=== PATIENT | female | born 1950 | race Caucasian/White ===

== ENCOUNTER 2020-02-12 09:57 | Emergency (ER) | payer BC, MEDICARE, OTHER ==
[~2020-02-12] VITALS: Ht 152.4 cm; Wt 60.0 kg
[~2020-02-12 09:57] MED LIST: BUPIVACAINE LIPOSOME; NONE PER PT; SENN1TAB67 PO
--- NOTE | 2020-02-12 10:12 | NUR ---
PT PRESENTED TO ED D/T RECTAL BLEEDING. PT STATES INCREASING BRIGHT RED BLOOD OVER THE PAST TWO DAYS. HX OF HEMORROIDS. PT STATES GAVE SELF ENEMA SUNDAY MORNING DUE TO CONSTIPATION. PT STATES DR BLANC PERFORMED SURGERY ON RECTUM AND THINKS "SHE TOOK A STICH OUT."
[2020-02-12] MEDS ORDERED: TOLT4CAP12 PO (10:16)
[2020-02-12] MEDS ORDERED: PARO10TA3 PO (10:16)
[2020-02-12 10:56] LABS: BASOPHILS # (AUTO) 0.03 x10^3/uL (0-0.1); BASOPHILS % (AUTO) 1 % (0-1); EOSINOPHILS # (AUTO) 0.12 x10^3/uL (0-0.4); EOSINOPHILS % (AUTO) 2 % (1-7); LYMPHOCYTES # (AUTO) 1.72 x10^3/uL (1-3.4); LYMPHOCYTES % (AUTO) 35 % (22-44); MD NO; MEAN CORPUSCULAR HEMOGLOBIN 29.5 pg (27.0-34.8); MEAN CORPUSCULAR HGB CONC 33.5 g/dL (32.4-35.8); MONOCYTES % (AUTO) 8 % (2-9); NEUTROPHILS # (AUTO) 2.58 x10^3/uL (1.8-6.8); NEUTROPHILS % (AUTO) 53 % (42-75); PLATELET COUNT 326 x10^3/uL (130-400); RED BLOOD COUNT 4.63 x10^6/uL (3.82-5.3); RED CELL DISTRIBUTION WIDTH 13.5 % (9.6-15.2)
[2020-02-12 11:05] VITALS: BP 130/81
--- NOTE | 2020-02-12 11:05 | NUR ---
PT LYING EYES CLOSED ON GURNEY. ERMD TO EVALUATE.
[2020-02-12 11:06] LABS: ALBUMIN 3.8 g/dL (3.4-5.0); ANION GAP 5 mmol/L (5-15); CALCIUM 8.9 mg/dL (8.5-10.1); CHLORIDE 108 mmol/L (98-107)
[2020-02-12 11:10] LABS: ALANINE AMINOTRANSFERASE 18 U/L (12-78); ALKALINE PHOSPHATASE 64 U/L (45-117); BILIRUBIN,TOTAL 0.5 mg/dL (0.2-1.0); CREATININE 0.85 mg/dL (0.55-1.02); TOTAL PROTEIN 7.7 g/dL (6.4-8.2)
--- NOTE | 2020-02-12 11:15 | NUR ---
PT DISCHARGED HOME IN A STABLE CONDITION. DC INSTRUCTIONS WERE DISCUSSED WITH PT. PT VERBALIZED UNDERSTANDING. NO FURTHER QUESTIONS OR CONCERNS EXPRESSED AT THAT TIME.
== END 2020-02-12 11:17 | disposition home or self-care (01) ==
LOC: ED 10:55
DX: K62.5 Hemorrhage of anus and rectum (principal); K59.00 Constipation, unspecified; Z88.2 Allergy status to sulfonamides; Z98.890 Other specified postprocedural states; Z79.899 Other long term (current) drug therapy
CPT/HCPCS: 36415; 80053; 85025; 99283